=== PATIENT | female | born 1955 | race Caucasian/White ===

== ENCOUNTER 2023-12-10 18:51 | Emergency (ER) | payer MEDICARE, MEDICAID ==
[2023-12-10 19:23] VITALS: BP 155/100; PULSE 98
== END 2023-12-10 20:34 ==
LOC: JP.ED 18:51
DX: S00.03XA Contusion of scalp, initial encounter (principal); S01.01XA Laceration without foreign body of scalp, initial encounter; I10 Essential (primary) hypertension; W22.8XXA Striking against or struck by other objects, initial encounter; Z79.899 Other long term (current) drug therapy
CPT/HCPCS: 12001; 70450; 70450-26; 99284